=== PATIENT | female | born 1975 | race Caucasian/White ===

== ENCOUNTER 2018-03-27 01:01 | Inpatient (IN) | payer OTHER ==
[~2018-03-27] VITALS: Ht 175.3 cm; Wt 91.6 kg
[2018-03-27] MEDS ORDERED: LORADAMED10 MG PO (02:03)
--- NOTE | 2018-03-27 07:21 | NUR ---
RECIEVED REPORT FROM MYRANDA GUAN.
--- NOTE | 2018-03-27 08:09 | NUR ---
patient in bed, mom in room, needed no other assistance
--- NOTE | 2018-03-27 09:02 | NUR ---
DR. DOBBS IN ROOM ASSESSING PT. PT'S MOTHER, FATHER, AND HER TWIN BOYS IN ROOM. HER SONS ARE IN 8TH GRADE PER PT. PT ALERT, ORIENTED X 4. RATED PAIN TO ABDOMEN 3/10, DENIED NEED FOR PAIN MEDICATION AT THIS TIME. PERSONAL SUPPLIES AND CALL LIGHT IN REACH.
[2018-03-27] MEDS ORDERED: ALLEGRA ALLERG180 MG PO (09:30)
[2018-03-27] MEDS ORDERED: VENTOLIN HFA18 GM INH (09:31)
[2018-03-27] MEDS ORDERED: FLONASE ALLERG9.9 ML NAS (09:31)
--- NOTE | 2018-03-27 09:39 | NUR ---
MED REC COMPLETE WITH PATIENT INTERVIEW.
--- NOTE | 2018-03-27 09:43 | NUR ---
THIS LABORER GENERAL SET PATIENT UP FOR PRE-SURGICAL CLEANSE AND SET UP SCD'S IN PATIENTS ROOM. PATIENT UP TO BATHROOM FOR CLEANSE, PATIENTS MOTHER IN ROOM HELPING PATIENT. PATIENT STATES SHE IS ON HER PERIOD AND IS CONCERNED ABOUT WHAT TO WEAR DURING SURGERY. THIS LABORER GENERAL PROVIDED MESH UNDERWEAR AND PADS FOR PATIENT. RN NOTIFIED. NO OTHER NEEDS AT THIS TIME.
--- NOTE | 2018-03-27 10:22 | NUR ---
PT LEFT FLOOR VIA [facility] ACCOMPANIED BY SURGERY NURSE, MYRANDA SAXENA. LEFT FLOOR AT 1022. PT WILL CHANGE ROOMS FROM 123 TO ROOM 122. PT AND PT'S MOTHER NOTIFIED BEFORE PT LEFT FLOOR FOR SURGERY.
--- NOTE | 2018-03-27 12:10 | NUR ---
03/27/18 1210 Gabi Cervantes 1205 PATIENT ARRIVES TO PACU SLEEPING, AWAKENS OFF/ON, BUT DOES NOT FOLLOW COMMANDS. RESP EVEN AND UNLABORED, ARRIVES TO PACU ON ROOM AIR.
--- NOTE | 2018-03-27 13:14 | NUR ---
PT TO ROOM 122 FROM PACU VIA [facility], ACCOMPANIED BY MYRANDA MENDOZA. RECIEVED BEDSIDE REPORT. PT STOOD FROM STRECHER, PIVOTED TO BED WITH 1 PERSON ASSIST. PT DROWSY, AND SHAKING. PER REPORT FROM MYRANDA MENDOZA, PT HAS BEEN SHAKING WHILE IN PACU WELL, BUT TEMP WNL. CURRENT TEMP 97.8. PT ON 2L O2 VIA NC, ON CONTINUOUS PULSE OX, SATURATION 99%. PT TO ROOM AT 1310.
[2018-03-27] MEDS ORDERED: NORCO 10-325 T1 EACH PO (13:48)
--- NOTE | 2018-03-27 14:02 | NUR ---
PT UP TO BATHROOM WITH 1 PERSON MINIMAL ASSIST. PT VOIDED 500 CC URINE IN HAT, THEN AMBULATED BACK TO BED WITH STANDBY ASSIST. PT TITRATED TO RA, OXYGEN SATURATION LEVEL 94-95% ON RA. PT ENCOURAGED TO DEEP BREATH AND COUGH.
--- NOTE | 2018-03-27 15:09 | NUR ---
PT IN BED, REMAINS DROWSY, BUT MORE ALERT THAN LAST ASSESSMENT. RATES PAIN TO ABDOMEN 5/10. REMAINS ON RA, OXYGEN SATURATION LEVEL 96%. PT EATING JELLO, TOLERATING WELL.
--- NOTE | 2018-03-27 15:37 | NUR ---
PT GIVEN NORCO 5/325 MG 1 TAB PO PRN FOR REPORT OF ABDOMINAL PAIN 01/02. PT ATE 1 CUP JELLO, HAS TOLERATED 350 ML WATER, AND ATE 4 SALTINE CRACKERS. PT IS IN BED. REMAINS DROWSY, BUT IS EASILY AROUSED WITH VERBAL STIMULI. PT'S MOTHER AT BEDSIDE. PT ON RA, OXYGEN SATURATION LEVEL 95%.
--- NOTE | 2018-03-27 16:32 | NUR ---
PT IN BED, HOB ELEVATED, PT DROWSY, BUT AWAKE, ORIENTED. PT'S MOTHER AT BEDSIDE. PT DENIES NAUSEA. REPORTS PAIN IS WELL CONTROLLED, EXCEPT WHEN SHE TAKES A DEEP BREATH. RATED PAIN TO RIGHT UPPER QUADRANT 7/10 WITH DEEP BREATH. PT GIVEN SALTINE CRACKERS TO EAT, THEN THIS RN WILL GIVE NORCO PRN.
--- NOTE | 2018-03-27 17:53 | NUR ---
PT C/O 910 PAIN AFTER EATING TOMATOES AND COTTAGE CHEESE. GAVE DILAUDID 1 MG IV PRN. PT DENIED NAUSEA. REPORTED PAIN WAS A SHARP, STABBING PAIN TO EPIGASTRIC AND RIGHT UPPER QUADRANT AREAS. PT DENIED OTHER NEEDS AT THIS TIME.
--- NOTE | 2018-03-27 18:22 | NUR ---
PT HAD A LAPAROSCOPIC CHOLECYSTECTOMY THIS SHIFT. HAS SCOPE SITES TO ABDOMEN X 4, COVERED WITH GAUZE AND TAPE, MODERATE AMOUNT OF SHADOWING PRESENT. PT WAS VERY DROWSY WHEN SHE ARRIVED TO FLOOR FROM PACU, AND REMAINED DROWSY FOR THE FIRST SEVERAL HOURS SHE WAS HERE. HAS NOW BECOME MORE ALERT. PT DID C/O INCREASED PAIN TO ABDOMEN, RUQ AND EPIGASTRIC AREA, GAVE NORCO 1 TAB AT 1536, THEN A SECOND TAB AT 1643, WITH PT REPORTING GOOD PAIN RELIEF WITH THE SECOND TABLET. PT HAD EATEN CRACKERS, PUDDING, AND JELLO. AFTER PT ATE A SMALL DINNER, TOMATOES AND COTTAGE CHEESE, PT REPORTED THAT HER PAIN LEVEL TO RUQ AND EPIGASTRIC AREAS WAS 9/10. GAVE PT DILAUDID 1 MG IV PRN AT 1748. PT UP, AMBULATED IN HALLS WITH STANDBY ASSIST WITH [employer]. PT REPORTED THAT HER ABDOMINAL PAIN IS IMPROVING. DENIES NAUSEA.
--- NOTE | 2018-03-27 18:37 | NUR ---
PT IN BED, RESTING, AWAKE, ALERT. DENIED NAUSEA. REPORTED THAT PAIN TO ABDOMEN IS IMPROVING, RATED PAIN 7/10 AT THIS TIME. PERSONAL SUPPLIES AND CALL LIGHT IN REACH. DENIED OTHER NEEDS AT THIS TIME. PT'S MOTHER AT BEDSIDE.
--- NOTE | 2018-03-27 21:49 | NUR ---
PT RESTING IN BED. PT RATES PAIN 7/10, DENIES NAUSEA OR SOB. PRN NORCO ADMINISTERED. PT STATES THAT SHE PLANS TO GET UP, USE THE BATHROOM, WALK IN THE SABILLON, AND EAT SOME JELLO. PT DEMONSTRATES APPROPRITAE IS USE TO HOSPICE CONSULTANT. EDUCATION PROVIED REGARDING PAIN MANAGEMENT, MEDICATION REGIMEN AT HOME. PT STATES UNDERSTANDING. ICE WATER, JELLO, AND ICE PACK PROVIDED. PT ASSESSMENT COMPLETE. BT'S HYPO, ABD TENDER TO PALPATION. GAUZE TO LAP SITES X 4 C/D/I. PT DENIES FURTHER NEEDS AT THIS TIME. CALL LIGHT WITHIN REACH. PT'S DAD AT BEDSIDE.
--- NOTE | 2018-03-27 23:01 | NUR ---
PT DISCHARGED HOME. WRITTEN AND VERBAL EDUCATION PROVIDED. PT STATES UNDERSTANDING OF INSTRUCTIONS. PT'S FATHER HAS ALREADY PICKED UP PT PRESCRIPTION. SL REMOVED. PT ESCORTED OUT TO HER FATHER'S VEHICLE VIA WC. PT DENIES OTHER QUESTIONS OR CONCERNS AT TIME OF DC. VSS.
--- NOTE | 2018-03-28 09:50 | CONS ---
[facility] [address] [place], [place] [address] Signed DATE OF CONSULTATION: 03/27/2018 PRIMARY CARE PROVIDER: Juno Brandt DO. CHIEF COMPLAINT: Epigastric abdominal pain. 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 She said she has had several episodes now of midepigastric abdominal pain after eating. The last two episodes were extremely severe. She finally came to emergency room for evaluation. Her white count was borderline with 12.1 and her hemoglobin is borderline at 12 with a mean cell volume slightly low at 73. We see that her liver function tests are fine. Lipase fine. She ended up with a CT scan of abdomen and pelvis and it showed what they thought was hydropic gallbladder. Consequently, an ultrasound was ordered and sure enough, the gallbladder is distended with 3 mm wall. Common bile duct is fine. There are stones in the gallbladder. Consequently, I was asked to admit her as a general surgeon on-call. We hydrated her overnight and given her antibiotics and pain control. This morning, she is feeling better. PAST MEDICAL HISTORY: Asthma and heart burn. PAST SURGICAL HISTORY: . SOCIAL HISTORY: She does not smoke. She has an occasional drink. She is and has two twin boys in 8th grade. She is an bilingual middle school teacher and drives. Her mother is Tara Ramos at [phone]. She has no preferred pharmacy. FAMILY HISTORY: Mother and father are both healthy. REVIEW OF SYSTEMS: She had 10 systems reviewed. She is quite healthy. ALLERGIES: Morphine. MEDICATIONS: Loratadine. Electronically Signed By: NORY DOBBS MD 03/28/18 0950 PATIENT NAME: CHARLA SNOWDEN CONSULTATION DATE OF : 77 REPORT #: [id number] PHYSICIAN: NORY DOBBS MD PCP: JUNO BRANDT DO REPORT IS CONFIDENTIAL AND NOT TO BE RELEASED WITHOUT AUTHORIZATION [facility] [address] [place], [place] [address] Signed PHYSICAL EXAMINATION: VITAL SIGNS: Her blood pressure 129/77, heart rate 62, respiratory rate 16, temperature is 97.9, and she is 100% on room air. She is 5 feet 9 inches at 91 kilos. GENERAL: Charla is a 42-year-old lady, who is lying supine in her hospital bed. Her mother and father and her two sons are in the room. She does not appear systemically ill or toxic. LUNGS: Her lungs are clear to auscultation bilaterally. HEART: Regular rate and rhythm. ABDOMEN: Soft, flat, and nontender. LABORATORY DATA: Her white blood cell count 12.1, hemoglobin is 12, mean cell volume 73, neutrophils 72, BUN is 10, creatinine is 0.7. Urinalysis negative. Total bilirubin 0.6, AST 22, ALT 18, alkaline phosphatase is 84, albumin is 4.2, lipase 27. Beta HCG is pending. RADIOGRAPHIC STUDIES: The CT scan showed a distended gallbladder, the ultrasound confirmed that along with the stones. ASSESSMENT/PLAN: Charla is a 42-year-old female, who presents with acute cholecystitis, cholelithiasis, and biliary colic. She has been admitted, given IV fluids and antibiotics. We were in the process of checking her beta HCG currently. Otherwise, she will be going to the operating room here shortly. We have reviewed the location and function of the gallbladder. We have discussed laparoscopic versus open cholecystectomy. We reviewed the expected intraop and postop course. There is risk of surgery including, but not limited to bleeding, infection, scarring, change in contour of the skin, damage to bowel, damage to main bile duct, incisional hernias, and other unforeseen comorbidities. She has expressed understanding and wishes to proceed. Nory Dobbs MD ALB/MODL /[id number] cc: Juno Brandt DO Electronically Signed By: NORY DOBBS MD 03/28/18 0950 PATIENT NAME: CHARLA SNOWDEN CONSULTATION DATE OF : 77 REPORT #: [id number] PHYSICIAN: NORY DOBBS MD PCP: JUNO BRANDT DO REPORT IS CONFIDENTIAL AND NOT TO BE RELEASED WITHOUT AUTHORIZATION [facility] [address] [place] [id number] Signed Nory Dobbs MD Copies: JUNO BRANDT ANDREW L MD ~ Electronically Signed By: NORY DOBBS MD 03/28/18 0950 PATIENT NAME: CAHRLA SNOWDEN CONSULTATION DATE OF : 77 REPORT #: [id number] PHYSICIAN: NORY DOBBS MD PCP: JUNO BRANDT DO REPORT IS CONFIDENTIAL AND NOT TO BE RELEASED WITHOUT AUTHORIZATION
--- NOTE | 2018-03-28 09:50 | OR ---
[facility] [address] [place], [place] [address] Signed DATE OF OPERATION: 03/27/2018 SURGEON: Nory Dobbs MD PREOPERATIVE DIAGNOSIS: Acute cholecystitis with cholelithiasis. POSTOPERATIVE DIAGNOSIS: Acute cholecystitis with cholelithiasis. PROCEDURE: Laparoscopic cholecystectomy with intraoperative cholangiogram. ESTIMATED BLOOD LOSS: None. FINDINGS: The intraoperative cholangiogram was unremarkable. Charla had several stones in the neck of the gallbladder. The gallbladder was mildly thickened and edematous. She had significant cholesterolosis. There was thick mucoid fluid inside the gallbladder. 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 She has had several attacks of mid epigastric abdominal pain after eating. She said the last two attacks were quite severe. She ended up in the emergency room last night. White count was borderline at 12.1 with normal liver function test. She therefore had a CT scan of abdomen and pelvis, which showed what appeared to be a hydropic gallbladder. Ultrasound was ordered and again she has a hydropic gallbladder with a 3 mm gallbladder wall and some stones present and unremarkable common bile duct. We admitted her overnight with antibiotics, IV fluids, and pain control. This morning, she is doing much better. She is also borderline anemic with a hemoglobin of 12 and a mean cell volume low at 73. I met with Charla and her family earlier today. We discussed the location of function of the gallbladder. We discussed laparoscopic versus open cholecystectomy. They understand expected intraop and postop course. There is risk to surgery including, but not limited to bleeding, infection, scarring, change in contour of the skin, damage to bowel, damage to main bile duct, and incisional hernias. They had expressed understanding and wish to proceed. PROCEDURE NOTE: Charla was taken into the operating room and placed in a supine position. Under general Electronically Signed By: NORY DOBBS MD 03/28/18 0950 PATIENT NAME: CHARLA SNOWDEN OPERATIVE REPORT DATE OF : 77 REPORT #: [id number] PHYSICIAN: NORY DOBBS MD PCP: MARIA FERNANDA BRANDT DO REPORT IS CONFIDENTIAL AND NOT TO BE RELEASED WITHOUT AUTHORIZATION [facility] [address] [place], [place] [address] Signed endotracheal tube anesthesia, she was given preoperative antibiotics along with subcutaneous heparin. SCDs were utilized. She was then prepped and draped in the usual sterile fashion. All trocars were placed in usual positions under direct visualization of camera without difficulty. The gallbladder was grasped and elevated in the right upper quadrant. The findings are as above. The triangle of Calot was then dissected free and some omentum was taken off front of the gallbladder as well as the lateral edge of the liver. We put a clip across the cystic artery and it was divided. The intraoperative cholangiocatheter was inserted into the cystic duct. The intraoperative cholangiogram was then performed. The cystic duct stump was secured with a PDS Endoloop and 2 clips were placed across the cystic duct stump to caitie its location. After this, the gallbladder was removed from the gallbladder fossa with the help of the cautery and placed into an EndoCatch bag. The right upper quadrant was copiously irrigated and suctioned out until clear. We used our laparoscopic suturing device to pass 0 Vicryl suture on either side of the fascia of the subxiphoid trocar site. This was tied down to close this fascia primarily. After this, all the gas was allowed to escape and all the trocars were removed. We closed the fascia of the supraumbilical trocar site with interrupted [id number] and simple 0 Vicryl sutures. Local anesthetic was copiously injected into all trocar sites. Each trocar site was irrigated and suctioned out until clear. The skin and dermis of each trocar site were closed with interrupted 3-0 subcuticular Monocryl sutures. Dry gauze and tape were applied to all incisions. Charla was then awakened from anesthesia, extubated in the OR, and taken to recovery room in stable condition. Nory Dobbs MD [facility]/MODL /[id number] cc: DO Nory Moses MD Copies: MARIA FERNANDA BRANDT DO Electronically Signed By: NORY DOBBS MD 03/28/18 0950 PATIENT NAME: CHARLA SNOWDEN OPERATIVE REPORT DATE OF : 77 REPORT #: [id number] PHYSICIAN: NORY DOBBS MD PCP: MARIA FERNANDA BRANDT DO REPORT IS CONFIDENTIAL AND NOT TO BE RELEASED WITHOUT AUTHORIZATION [address] [address] Signed NORY DOBBS MD ~ Electronically Signed By: NORY DOBBS MD 03/28/18 0950 PATIENT NAME: CHARLA SNOWDEN OPERATIVE REPORT DATE OF : 77 REPORT #: [id number] PHYSICIAN: NORY DOBBS MD PCP: MARIA FERNANDA BRANDT DO REPORT IS CONFIDENTIAL AND NOT TO BE RELEASED WITHOUT AUTHORIZATION
== END 2018-03-27 22:55 | disposition home or self-care (01) | DRG 419 ==
LOC: ED 01:01 → MS 06:15
PROVIDERS: ADMIT Colon & Rectal Surgery
PROC: BF12YZZ Fluoroscopy of Gallbladder using Other Contrast (ICD-10-PCS; 2018-03-27)
PROC: 0FT44ZZ Resection of Gallbladder, Percutaneous Endoscopic Approach (ICD-10-PCS; principal; 2018-03-27 12:00)
DX: K80.00 Calculus of gallbladder with acute cholecystitis without obstruction (principal)
CPT/HCPCS: 74177; 74300; 76705; 80053; 81001; 83690; 84703; 85025; 94762; J1100; J1170; J1885; J1956; J2250; J2405; J2550; J2704; J3010; J7030; J7120; Q9967

== ENCOUNTER 2022-03-19 05:37 | Day surgery (SDC) | payer OTHER ==
[~2022-03-19] VITALS: Ht 175.3 cm; Wt 97.7 kg
--- NOTE | ~2022-03-19 | OR ---
[facility] [address] [place] [id number] Draft DATE OF OPERATION: 03/19/2022 SURGEON: Eliseo Gary DO PREOPERATIVE DIAGNOSES: 1. Abnormal uterine bleeding. 2. Adenomyosis. POSTOPERATIVE DIAGNOSES: 1. Abnormal uterine bleeding. 2. Adenomyosis. PROCEDURES PERFORMED: 1. Total laparoscopic hysterectomy. 2. Bilateral salpingectomy. 3. Cystoscopy. BOW MAKER: Caron Navarro DO ANESTHESIA: General. ESTIMATED BLOOD LOSS: 100 mL. SPECIMENS: Uterus, bilateral tubes, and cervix. DRAINS: Robledo to dependent drainage. FINDINGS: Normal external genitalia with normal clitoris, urethral meatus, bilateral Coram's, and Bartholin glands. Normal vagina and cervix. On laparoscopy, normal uterus, bilateral tubes and ovaries. No significant adhesions. Hemostasis with excellent apical support at the end of procedure. On cystoscopy, normal bladder with bilateral ureteral jets. COMPLICATIONS: None. PATIENT NAME: ADRIAN SNOWDEN OPERATIVE REPORT DATE OF : 77 REPORT #: [id number] PHYSICIAN: ELISEO GARY DO PCP: MARIA FERNANDA BRANDT DO REPORT IS CONFIDENTIAL AND NOT TO BE RELEASED WITHOUT AUTHORIZATION [facility] [address] [place] [id number] Draft INDICATIONS: Ms. Snowden is a very pleasant 46-year-old female who presented complaining of heavy irregular periods with clots and accidents. Ultrasound demonstrated findings consistent with adenomyosis. Endometrial biopsy demonstrated disordered proliferative endometrium with no hyperplasia or atypia and she is up-to-date on her Pap smears. The patient was consented for total laparoscopic hysterectomy, bilateral salpingectomy and cystoscopy. Risks, benefits, and alternatives were discussed in detail with the patient. The patient understands and wished to proceed with the procedure. TECHNIQUE: The patient was taken to the operating room where a time-out was performed to confirm correct patient and correct procedure. General anesthesia was adequately established. The patient was prepped and draped in dorsal lithotomy position with feet in Yellofin stirrups. ICPs were on and running and the patient received Ancef 2 g as well as heparin 5000 units preoperatively. A Robledo catheter was inserted. A weighted speculum was placed in the vagina and the anterior lip of the cervix was grasped with an Allis clamp. The cervix was gently dilated using Hegar dilators and a VCare uterine manipulator was placed without difficulty. The surgeon's gloves were changed and attention was turned to the abdomen. Approximately 2 cm below the umbilicus was infiltrated with 0.25% Marcaine with epinephrine and a 3 cm curvilinear incision was made using 11 blade. The fascia was grasped, elevated, and entered sharply with Metzenbaum scissors. Stay sutures of 0 Vicryl were placed in the superior and inferior edges of the fascial incision. The peritoneum was entered bluntly and an S retractor was used to elevate the peritoneum while James port was placed. Pneumoperitoneum was easily established and survey of the abdomen and pelvis was performed with the above findings. A 5 mm assist port was placed in the left lower quadrant under direct visualization without complication. An 8 mm expanding port was placed in the right lower quadrant under direct visualization without complication. The left fallopian tube was grasped with the fimbriated end, elevated and dissected along the mesosalpinx using the LigaSure device. This was amputated at the cornu and delivered through the operative port. The left utero-ovarian ligament was fulgurated and divided and the left round ligament was fulgurated and divided. The leaves of the round ligament were divided from the midportion of the round ligament to the uterosacral ligament and posteriorly across the edge of the vaginal cup and anteriorly to the edge of the vaginal cup and across the anterior portion of this. The uterine vessels were identified, fulgurated and divided with excellent hemostasis. The process was repeated on the right side with division of the tube from the mesosalpinx, the right utero-ovarian ligament, the round ligament and the leaves of the broad ligament. The right uterine vessels were identified, fulgurated and divided with excellent hemostasis. Colpotomy was then performed using Sonicision device and the cervix and uterus were delivered through the vagina and sent to pathology for further evaluation. The vagina was stuffed with a wet PATIENT NAME: ADRIAN SNOWDEN OPERATIVE REPORT DATE OF : 77 REPORT #: [id number] PHYSICIAN: ELISEO GARY DO PCP: MARIA FERNANDA BRANDT DO REPORT IS CONFIDENTIAL AND NOT TO BE RELEASED WITHOUT AUTHORIZATION [address] [address] Draft lap inside of a surgical glove to maintain pneumoperitoneum. Attention was turned to colpotomy repair. The right uterosacral ligament was grasped with graspers, elevated, and V-Loc suture with the Endostitch device was used to close the colpotomy in a running manner with careful attention to incorporate the bilateral uterosacral ligaments as well as the vaginal epithelium with each bite. Excellent hemostasis and apical support were then noted at the end the procedure. The pelvis is irrigated, found to be hemostatic. Pneumoperitoneum was reduced and trocars were removed. Infraumbilical fascia was then reapproximated using 0 Vicryl in a running nonlocked manner. Trocar incisions were repaired using 4-0 Monocryl in a subcuticular stitch with excellent hemostasis and cosmesis. Attention was turned to cystoscopy. The Robledo catheter was removed and a 70-degree cystoscope was placed in the urethral meatus and advanced under direct visualization of the bladder. Normal bladder dome and bilateral ureteral jets were appreciated. The bladder was drained. Robledo catheter was reinserted. The glove was removed from the vagina and the patient was taken to the PACU in good and stable condition. Sponge, needle, and instrument count was correct x2 at the end of procedure. Dr. Navarro was present and participated in all portions of the procedure. Eliseo Gary DO JDW/MODL /[id number] Copies: ~ PATIENT NAME: ADRIAN SNOWDEN OPERATIVE REPORT DATE OF : 77 REPORT #: [id number] PHYSICIAN: ELISEO GARY DO PCP: MARIA FERNANDA BRANDT DO REPORT IS CONFIDENTIAL AND NOT TO BE RELEASED WITHOUT AUTHORIZATION
[~2022-03-19 05:37] MED LIST: ALLEGRA ALLERG180 MG PO; FLONASE ALLERG9.9 ML NAS; LORADAMED10 MG PO; NORCO 10-325 T1 EACH PO; VENTOLIN HFA18 GM INH
[2022-03-19] MEDS ORDERED: MOTRIN IB200 MG NG (05:54)
--- NOTE | 2022-03-19 08:36 | NUR ---
ENTERED PTS' RM-DR BARBER IN WITH PTMonica TAYLOR NEEDED
--- NOTE | 2022-03-19 09:27 | NUR ---
03/19/22 0927 Sheets,Honey 0947 PT ARRIVED TO PACU ON 6L VIA MASK, PT ASLEEP AND WAKES TO TACTILE STIMULI AND ASKING FOR WATER. PT REORIENTED TO PACU AND EASILY FALLS BACK TO SLEEP. VSS. 0926 O2 REMOVED. PT DENIES PAIN AND NAUSEA.
--- NOTE | 2022-03-19 10:13 | NUR ---
0950 PATIENT BACK FROM PACU. REPORT RECIEVED FROM MYRANDA MOULTON. PATIENT IS DROWSY BUT ORIENTED. BREATHING EQUAL AND UNLABORED. OXYGEN SATURATIONS ABOVE 95% ON ROOM AIR. IVF INFUSING. PATIENT COMPLAINS OF 5/10 AT SURIGCAL SITE. DENIES NEEDING ANYTHING AT THIS TIME. 1000 PATIENT CATH REMOVED. 1015 PATIENT PAIN IS A 6/10 PAIN. PATIENT ABLE TO EAT PUDDING WITHOUT NAUSEA. PRN MEDICATION GIVEN. SEE EMAR. PATIENT DRINKING WATER AND TALKING TO PARENTS AT BEDISDE. CALL LIGHT WITHIN REACH NO FUTHER NEEDS NO QUESTIONS AT THIS TIME.
--- NOTE | 2022-03-19 12:04 | NUR ---
1145 PATIENT ABLE TO VOIDED 200 MLS OF CLEAR AND YELLOW URINE. 1150 PATIENT IS ALERT AND ORIENTED. BREATHING EQUAL AND UNLABORED. OXYGEN SATURATIONS ABOVE 95% ON ROOM AIR. PATIENT SAYS PAIN HAS IMPROVED. PATIENT HAS HAD PUDDING AND WATER. CALL LIGHT WITHIN REACH NO FUTHER NEEDS NO QUESTIONS AT THIS TIME. 1205 WAITING ON MD FOR PERSCRIPTION.
--- NOTE | 2022-03-19 12:45 | NUR ---
STAND BY ASSIST WHILE PATIENT GOT OOB AND WALKED TO BATHROOM. VOID WITHOUT DIFFICULTY. GAIT STEADY. VS CHECKED ONCE BACK IN ROOM. CALL LIGHT WITHIN REACH. MOTHER AT BEDSIDE.
--- NOTE | 2022-03-19 14:01 | NUR ---
CONNECTED WITH PT ONCE BACK FROM PACU. SHE IS ALERT, ORIENTED AND VISITING WITH HER PARENTS. GAVE ENCOURAGEMENT AND BLESSING. WILL FOLLOW NEEDED
--- NOTE | 2022-03-19 14:01 | NUR ---
1335 MD INTO SEE PATIENT 1345 PATIENT HAS MET DISCHARGE CRITERIA. PATIENT IV D/C'D WNL. INSTRUCTIONS GIVEN AND UNDERSTOOD. NO QUESTIONS AT THIS TIME. PATIENT WAS WHEELED OUT OF FACILITY TO PRIVATE AUTO.
--- NOTE | 2022-03-23 12:52 | PATH ---
[facility] [address], [place] [address] Signed SPECIMEN(S): A UTERUS, CERVIX AND FALLOPIAN TUBES SPECIMEN SOURCE: A. UTERUS, CERVIX AND FALLOPIAN TUBES CLINICAL HISTORY: Abnormal uterine bleeding, adenomyosis. FINAL PATHOLOGIC DIAGNOSIS: Uterus with bilateral fallopian tubes, hysterectomy with bilateral salpingectomy: - Proliferative phase endometrium with a benign endometrial polyp; no hyperplasia or neoplasia identified. - Cervix with no significant pathologic changes. - Bilateral fallopian tubes with paratubal cysts. BRP:mfr:C2NR MICROSCOPIC EXAMINATION: Histologic sections of all submitted blocks are examined by light microscopy. These findings, together with the gross examination, support the pathologic diagnosis. GROSS DESCRIPTION: The specimen, labeled "RAAD, A," and designated on the requisition "bilateral fallopian tubes, uterus, cervix," is received in formalin and consists of a uterus with attached cervix and two detached fimbriated fallopian tube segments. The two fimbriated fallopian tube segments are purple, undesignated, and have a patent lumen. The first is arbitrarily inked blue, 6.2 cm long, 0.7 cm diameter, and grossly unremarkable. The second is 4.6 cm long, 0.8 cm in diameter, and has multiple clear fluid-filled, smooth inner walled cystic structures from 0.1 up to 0.5 cm in greatest dimension. The uterus with attached cervix weighs 103.6 grams and measures 9.4 x 5.8 x 4.2 cm. The uterine serosa is lewis, smooth, and glistening. The orientation of the uterus is grossly indeterminate. The ectocervical tissue is smooth, lewis-white, and occupies a 3.2 x 2.8 cm area. The external os is oval, patent, and 0.8 cm in diameter. The internal os is patent and the cervical stroma is grossly unremarkable. The triangular endometrial cavity measures 4.6 x 2.7 cm. The dark red endometrium is markedly ragged, up to 0.2 cm thick, and without a PATIENT NAME: ADRIAN SNOWDEN PATHOLOGY DATE OF : 77 REPORT #: [id number] PHYSICIAN: EDITH PATHOLOGY PCP: MARIA FERNANDA BRANDT DO REPORT IS CONFIDENTIAL AND NOT TO BE RELEASED WITHOUT AUTHORIZATION [facility] [address], [place] [address] Signed discrete mass/lesion. The lewis, rubbery myometrium is up to 2.0 cm thick and without a discrete mass/lesion. [employer] Equipment Repairer sections are submitted as follows: A1-A2 fallopian tubes including fimbria entirely A3-A4 cervix A5-A6 uterine wall AI (under the direct supervision of a pathologist) The Gross Description was prepared using a voice recognition system. The report was reviewed for accuracy; however, sound-alike word errors, addition and/or deletions may occur. If there is any question about this report, please contact Client Services. PERFORMING LABORATORY: The technical component was performed by [facility], [address] [place] [id number] (CLIA# [id number]). Professional interpretation was performed by [facility], [address] [place] [id number] (CLIA# [id number]). Diagnostician: Nate Verma MD Pathologist Electronically Signed 03/23/2022 Copies: ~ PATIENT NAME: ADRIAN SNOWDEN PATHOLOGY DATE OF : 77 REPORT #: [id number] PHYSICIAN: EDITH CRUZ PCP: MARIA FERNANDA BRANDT DO REPORT IS CONFIDENTIAL AND NOT TO BE RELEASED WITHOUT AUTHORIZATION
== END 2022-03-19 13:45 | disposition home or self-care (01) ==
LOC: DS 05:37
PROVIDERS: ATTEND Obstetrics & Gynecology
PROC: 0UT94ZZ Resection of Uterus, Percutaneous Endoscopic Approach (ICD-10-PCS; principal; 2022-03-19 07:30)
PROC: 0UT74ZZ Resection of Bilateral Fallopian Tubes, Percutaneous Endoscopic Approach (ICD-10-PCS; 2022-03-19 07:30)
DX: N84.0 Polyp of corpus uteri (principal); N80.0 Endometriosis of uterus; N92.1 Excessive and frequent menstruation with irregular cycle; N83.8 Other noninflammatory disorders of ovary, fallopian tube and broad ligament; L40.9 Psoriasis, unspecified; J45.909 Unspecified asthma, uncomplicated; E55.9 Vitamin D deficiency, unspecified; Z88.5 Allergy status to narcotic agent; Z90.49 Acquired absence of other specified parts of digestive tract
CPT/HCPCS: 00840; 36415; 86900; 86901; A9270; J0690; J1100; J1170; J1644; J1885; J2001; J2250; J2405; J2704; J2765; J3010; J7121